=== PATIENT | female | born 1970 | race Hispanic/Latino ===

== ENCOUNTER 2018-10-16 12:20 | Emergency (ER) | payer BC, OTHER, SELFPAY ==
[2018-10-16 14:13] LABS: Absolute Lymphocytes (CBC) 2.5 K/uL (0.7-4.9); Absolute Monocytes 0.7 K/uL (0.1-1.3); Absolute Neutrophil 4.3 K/uL (1.8-8.0); Basophils % 0.7 % (0-1.3); Eosinophils % 2.5 % (0-4.4); Hematocrit 41.5 % (36.0-45.0); Lymphocytes % 32.1 % (15.3-44.8); MPV 7.9 fL (7.6-11.3); Monocytes % 9.5 % (3.3-12.3)
[2018-10-16 15:10] LABS: ALT/SGPT 26 U/L (12-78); AST/SGOT 17 U/L (15-37); Albumin 3.8 g/dL (3.4-5.0); Alkaline Phosphatase 128 U/L (45-117); BUN Blood Urea Nitrogen 10 mg/dL (7-18); Bicarbonate 29 mmol/L (21-32); Bilirubin Direct 0.1 mg/dL (0-0.2); Bilirubin Total 0.4 mg/dL (0.2-1.0); Glucose Level 86 mg/dL (74-106); Lipase 111 U/L (73-393); Potassium 3.5 mmol/L (3.5-5.1); Sodium Level 139 mmol/L (136-145)
--- NOTE | 2018-10-16 16:10 | RAD REPORT ---
EXAM DESCRIPTION: CT - Abdomen Pelvis W Contrast - 10/16/2018 3:53 pm CLINICAL HISTORY: Left back pain, left lower quadrant pain, vomiting and diarrhea, prior oophorectom y COMPARISON: CT imaging March 2008 TECHNIQUE: Biphasic, helical CT imaging of the abdomen and pelvis was performed following 100 ml non -ionic IV contrast. Oral contrast was given. All CT scans are performed using dose optimization technique as appropriate and may include automated exposure control or mA/KV adjustment according to patient size. FINDINGS: No suspicious findings in the lung bases. The liver, spleen, and pancreas show no suspicious findings. Gallbladder is absent. No biliary tree d ilatation. Symmetric renal function is seen with no hydronephrosis or suspicious renal mass. No pyelonephritis o r acute parenchymal process. No adrenal gland abnormality seen. Vance of the urinary bladder appear r elatively prominent for the amount of volume within the lumen. A mass or bladder calculus is not seen . Correlation can be made with any clinical or laboratory findings for cystitis. Uterus is absent. Left ovarian or left ovarian remnant tissue present not regarded as suspicious. No cystic or solid adnexal mass. Phleboliths are present. Postsurgical changes are noted to the low ante rior abdominal wall. No acute stomach or small bowel finding. There is moderate stool volume in the colon. Oral contrast h as reached the hepatic flexure. No colitis, diverticulitis or acute colon process identifiable. No free air, free fluid or inflammatory stranding. No hernia, mass or bulky lymphadenopathy. No suspicious bony findings. IMPRESSION: Urinary bladder vance are relatively prominent but without focal mass or bladder calculu s. Correlation is needed with any clinical or laboratory findings of cystitis. No pyelonephritis or acute finding. No acute GI process identifiable.
--- NOTE | 2018-10-16 17:35 | ER ---
Nurse's Notes [facility] Name: Gely Arango Age: 48 yrs Sex: Female : 1970 Arrival Date: 10/16/2018 Time: 12:23 Bed 30 Private MD: Rayray Tian Diagnosis: Cystitis, unspecified without hematuria Presentation: 10/16 12:48 Presenting complaint: Patient states: LLQ pain and left low back pain that began 2-3 aa5 days ago. Pt denies vomiting, reports vomiting and diarrhea today. Transition of care: patient was not received from another setting of care. Onset of symptoms was September 2018. Risk Assessment: Do you want to hurt yourself or someone else? Patient reports no desire to harm self or others. Initial Sepsis Screen: Does the patient meet any 2 criteria? No. Patient's initial sepsis screen is negative. Does the patient have a suspected source of infection? No. Patient's initial sepsis screen is negative. Care prior to arrival: None. 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 - Social history:: Smoking status: Patient/guardian denies using tobacco, Patient/guardian denies using alcohol, street drugs, The patient lives with family. - Ebola Screening: : No symptoms or risks identified at this time. Screenin:09 Abuse screen: Denies threats or abuse. Nutritional screening: No deficits noted. tl3 Tuberculosis screening: No symptoms or risk factors identified. Fall Risk None identified. Assessment: 13:09 General: Appears in no apparent distress. comfortable, slender, well groomed, well tl3 developed, well nourished, Behavior is calm, cooperative, appropriate for age. Pain: Complains of pain in left lower quadrant. Neuro: Level of Consciousness is awake, alert, obeys commands. Cardiovascular: Patient's skin is warm and dry. Respiratory: Airway is patent Respiratory effort is even, unlabored, Respiratory pattern is regular, symmetrical. GI: Bowel sounds present X 4 quads. Abd is soft. : Urine is clear. EENT: No signs and/or symptoms were reported regarding the EENT system. Derm: No signs and/or symptoms reported regarding the dermatologic system. Musculoskeletal: No signs and/or symptoms reported regarding the musculoskeletal system. 16:31 Reassessment: Patient appears in no apparent distress at this time. No changes from tl3 previously documented assessment. Patient is alert, oriented x 3, equal unlabored respirations, skin warm/dry/pink. pt back from CT, awaiting results. 17:50 Reassessment: Patient appears in no apparent distress at this time. No changes from tl3 previously documented assessment. Patient is alert, oriented x 3, equal unlabored respirations, skin warm/dry/pink. Vital Signs: 12:50 BP 108 / 79; Pulse 80; Resp 18 S; Temp 98.0(TE); Pulse Ox 100% on R/A; Weight 79.38 kg aa5 (R); Height 5 ft. 7 in. (170.18 cm) (R); Pain 6/10; 13:56 BP 104 / 74; Pulse 79; Resp 18; Pulse Ox 99% ; tl3 16:31 BP 108 / 68; Pulse 70; Resp 18; Pulse Ox 99% ; tl3 17:50 BP 110 / 76; Pulse 78; Resp 16; Pulse Ox 100% on R/A; tl3 12:50 Body Mass Index 27.41 (79.38 kg, 170.18 cm) aa5 ED Course: 12:23 Patient arrived in ED. mr 12:23 Rayray Tian MD is Private Physician. mr 12:48 Arm band placed on. aa5 12:49 Triage completed. aa5 12:55 Dulce Finnegan RN is Primary Nurse. tl3 12:57 Yen Delgado MD is Attending Physician. ma2 13:09 Patient has correct armband on for positive identification. tl3 13:09 No provider procedures requiring assistance completed. tl3 13:55 Initial lab(s) drawn, by de, sent to lab. Inserted saline lock: 20 gauge in right tl3 antecubital area, using aseptic technique. Blood collected. 14:45 Lab(s) recollected, by me, sent to lab. jp3 15:[address] 2 15:51 [address] completed. Patient tolerated procedure well. Patient moved back from CT. 2 15:54 CT Abd/Pelvis - W/Contrast In Process Unspecified. EDMS 17:50 IV discontinued, intact, bleeding controlled, No redness/swelling at site. Pressure tl3 dressing applied. Administered Medications: No medications were administered Outcome: 17:35 Discharge ordered by . ma2 17:50 Discharged to home ambulatory. tl3 17:50 Condition: stable 17:50 Discharge instructions given to patient, Instructed on discharge instructions, follow up and referral plans. medication usage, Demonstrated understanding of instructions, follow-up care, medications, Prescriptions given X 4. 17:52 Patient left the ED. tl3 Signatures: Dispatcher [employer] EDID Leticia MonroeStacy, RN RN aa5 Ginna Maddox 2 Yen Delgado MD MD ma2 Dulce Finnegan RN RN tl3 Shaheen Butler jp3 Corrections: (The following items were deleted from the chart) 12:50 12:50 Immunization history: Flu vaccine is not up to date. aa5 aa5
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
[2018-10-16 18:06] VITALS: TEMP 98
[2018-10-16 18:10] VITALS: BP 110/76; O2SAT 100
[2018-10-16 20:28] LABS: Urine Blood NEGATIVE (NEG); Urine Glucose NEGATIVE (NEG); Urine Protein 1+ (NEG); Urine pH 7.5 (5.0-7.0)
== END 2018-10-16 17:52 | disposition home or self-care (01) ==
LOC: ER 12:20
DX: N30.90 Cystitis, unspecified without hematuria (principal); E03.9 Hypothyroidism, unspecified; Z88.5 Allergy status to narcotic agent
CPT/HCPCS: 36415; 74177; 80048; 80076; 81003; 81025; 83690; 85025; 99284; Q9967

== ENCOUNTER 2019-03-17 19:20 | Emergency (ER) | payer BC ==
--- NOTE | 2019-03-17 20:25 | RAD REPORT ---
EXAM DESCRIPTION: CT - Head Brain Wo Cont - 03/17/2019 8:05 pm CLINICAL HISTORY: Numbness COMPARISON: 2011 TECHNIQUE: Computed axial tomography of the head was obtained. IV contrast was not requested. All CT scans are performed using dose optimization technique as appropriate and may include automated exposure control or mA/KV adjustment according to patient size. FINDINGS: An intracranial bleed is not seen . The ventricles are normal in caliber. No extra-axial fluid collection is noted. Fluid within the sinuses/ mastoids is not seen. IMPRESSION: No acute intracranial abnormality is seen. If patient's symptoms persist MRI of the bra in would be recommended.
[2019-03-17 20:46] LABS: Absolute Lymphocytes (CBC) 2.7 K/uL (0.7-4.9); Basophils % 0.3 % (0-1.3); Hematocrit 38.6 % (36.0-45.0); Lymphocytes % 36.8 % (15.3-44.8); MPV 7.9 fL (7.6-11.3); RBC Red Blood Cell Count 3.94 M/uL (3.86-4.86)
[2019-03-17 21:02] LABS: Urine Bacteria 20-50 /HPF (<20); Urine Culture Reflex Order REFLEXED; Urine RBC <5 /HPF (NONE SEEN)
[2019-03-17 21:04] LABS: Urine Blood TRACE (NEG); Urine Glucose NEGATIVE (NEG); Urine Protein NEGATIVE (NEG)
[2019-03-17 21:11] LABS: BUN Blood Urea Nitrogen 7 mg/dL (7-18); Bicarbonate 29 mmol/L (21-32); Glucose Level 73 mg/dL (74-106); Magnesium 2.3 mg/dL (1.8-2.4); Potassium 3.5 mmol/L (3.5-5.1); Sodium Level 142 mmol/L (136-145)
--- NOTE | 2019-03-17 21:37 | EDPHYS ---
Physician Documentation [facility] Name: Gely Arango Age: 48 yrs Sex: Female : 1970 Arrival Date: 03/17/2019 Time: 19:23 Bed 13 Private MD: Rayray Tian ED Physician Eulogio Cronin HPI: 03/17 19:39 This 48 yrs old Female presents to ER via Ambulatory with complaints of rn Numbness Of Face, Numbness Of Hand, Headache, Numbness Of Feet. 19:39 The patient complains of pain to the generalized. The patient describes the headache as rn intermittent. Onset: The symptoms/episode began/occurred 2 week(s) ago. Associated signs and symptoms: Pertinent positives: paresthesias, Pertinent negatives: altered mental status, fever, neck stiffness, vision changes, vision loss, vomiting, weakness, vertigo. Severity of symptoms: At its worst the pain was mild, in the emergency department the pain is unchanged. The patient has experienced similar episodes in the past. Reports hx of hemiplegic migraines but has been a while, now 2 weeks of intermittent headache, assoc with numbness/tingling of both hands and feet, no focal weakness, no coordination issues, no chest pain/sob/abd pain. . 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 - Social history:: Smoking status: Patient/guardian denies using tobacco. - Ebola Screening: : Patient denies travel to an Ebola-affected area in the 21 days before illness onset. - Family history:: not pertinent. - Hospitalizations: : No recent hospitalization is reported. ROS: 19:39 Constitutional: Negative for fever, chills, and weight loss, Eyes: Negative for injury, rn pain, redness, and discharge, Neck: Negative for injury, pain, and swelling, Cardiovascular: Negative for chest pain, palpitations, and edema, Respiratory: Negative for shortness of breath, cough, wheezing, and pleuritic chest pain, Abdomen/GI: Negative for abdominal pain, nausea, vomiting, diarrhea, and constipation, : + foul smelling urine MS/Extremity: Negative for injury and deformity, Skin: Negative for injury, rash, and discoloration, Neuro: Negative for weakness, and seizure. Exam: 19:39 Constitutional: This is a well developed, well nourished patient who is awake, alert, rn and in no acute distress. Head/Face: Normocephalic, atraumatic. Eyes: Pupils equal round and reactive to light, extra-ocular motions intact. Lids and lashes normal. Conjunctiva and sclera are non-icteric and not injected. Cornea within normal limits. Periorbital areas with no swelling, redness, or edema. Respiratory: No increased work of breathing, no retractions or nasal flaring. Abdomen/GI: soft, non-tender Skin: Warm, dry MS/ Extremity: Pulses equal, no cyanosis. Neurovascular intact. Full, normal range of motion. Equal circumference. Neuro: Awake and alert, GCS 15, oriented to person, place, time, and situation. Cranial nerves II-XII grossly intact. Motor strength 5/5 in all extremities. Sensory grossly intact. Cerebellar exam normal. Vital Signs: 19:27 BP 129 / 75; Pulse 70; Resp 18; Temp 98.1; Pulse Ox 100% on R/A; Weight 73.94 kg (R); aj1 Height 5 ft. 6 in. (167.64 cm) (R); 21:00 BP 109 / 78; Pulse 71; Resp 16; Pulse Ox 100% on R/A; jb4 21:49 BP 103 / 66; Pulse 72; Resp 16; Pulse Ox 98% on R/A; jb4 19:27 Body Mass Index 26.31 (73.94 kg, 167.64 cm) aj1 Kinjal Coma Score: 21:36 Eye Response: spontaneous(4). Verbal Response: oriented(5). Motor Response: obeys rn commands(6). Total: 15. MDM: 19:30 Patient medically screened. rn 21:36 Differential diagnosis: migraine, tension headache, hypothyroidism, mono, UTI, rn electrolyte disorder. Data reviewed: vital signs, nurses notes, lab test result(s), radiologic studies, CT scan, and as a result, I will discharge patient. Counseling: I had a detailed discussion with the patient and/or guardian regarding: the historical points, exam findings, and any diagnostic results supporting the discharge/admit diagnosis, lab results, radiology results, the need for outpatient follow up, to return to the emergency department if symptoms worsen or persist or if there are any questions or concerns that arise at home. Response to treatment: the patient's symptoms have mildly improved after treatment, and as a result, I will discharge patient. Special discussion: I discussed with the patient/guardian in detail that at this point there is no indication for admission to the hospital. It is understood, however, that if the symptoms persist or worsen the patient needs to return immediately for re-evaluation. Based on the history and exam findings, there is no indication for further emergent testing or inpatient evaluation. I discussed with the patient/guardian the need to see the neurologist for further evaluation of the symptoms. I discussed with the patient/guardian the need to see the primary care provider for further evaluation of the symptoms. 03/17 19:39 Order name: CBC with Diff; Complete Time: : 03/17 19:39 Order name: Basic Metabolic Panel; Complete Time: : 03/17 19:39 Order name: Urine Microscopic Only; Complete Time: : 03/17 19:39 Order name: TSH; Complete Time: : 03/17 19:39 Order name: T4 Free; Complete Time: :03/17 19:39 Order name: Magnesium; Complete Time: :03/17 19:39 Order name: CT Head Brain wo Cont; Complete Time: 20:03/17 19:39 Order name: IV Start; Complete Time: 20:39 03/17 19:43 Order name: Lactate; Complete Time: :03/17 19:43 Order name: [place] Screen Profile; Complete Time: : 03/17 20:38 Order name: Urine Dipstick--Ancillary (enter results); Complete Time: : [facility] 03/17 20:38 Order name: Urine --Ancillary (enter results); Complete Time: : [facility] 03/17 21:06 Order name: Urine Culture [facility] 03/17 19:39 Order name: Urine Test (obtain specimen); Complete Time: 20: 03/17 19:39 Order name: Urine Dipstick-Ancillary (obtain specimen); Complete Time: 20:31 rn Administered Medications: 21:45 Drug: Macrobid 100 mg Route: PO; jb4 21:48 Follow up: Response: Medication administered at discharge. jb4 Disposition: 03/17/19 21:37 Discharged to Home. Impression: Urinary tract infection, site not specified, Paresthesia of skin, Headache. - Condition is Stable. - Discharge Instructions: General Headache Without Cause, Paresthesia, Urinary Tract Infection, Adult. - Prescriptions for Macrobid 100 mg Oral Capsule - take 1 capsule by ORAL route every 12 hours for 7 days; 14 capsule. - Medication Reconciliation Form, Thank You Letter, Antibiotic Education, Prescription Opioid Use form. - Follow up: Rayray Tian MD; When: As needed; Reason: Recheck today's complaints, Re-evaluation by your physician. - Problem is an ongoing problem. - Symptoms have improved. Signatures: Dispatcher [employer] EDSheela Ortiz RN RN aj1 Eulogio Cronin MD MD rn Bryson, James, RN RN jb4 Corrections: (The following items were deleted from the chart) 21:50 21:37 03/17/2019 21:37 Discharged to Home. Impression: Urinary tract infection, site jb4 not specified; Paresthesia of skin; Headache. Condition is Stable. Forms are Medication Reconciliation Form, Thank You Letter, Antibiotic Education, Prescription Opioid Use. Follow up: Rayray Tian; When: As needed; Reason: Recheck today's complaints, Re-evaluation by your physician. Problem is an ongoing problem. Symptoms have improved. rn
--- NOTE | 2019-03-17 21:37 | ER ---
Nurse's Notes [facility] Name: Gely Arango Age: 48 yrs Sex: Female : 1970 Arrival Date: 03/17/2019 Time: 19:23 Bed 13 Private MD: Rayray Tian Diagnosis: Urinary tract infection, site not specified;Paresthesia of skin;Headache Presentation: 03/17 19:24 Presenting complaint: Patient states: Numbness in both hands and feet for the past 5 aj1 days. Today the pain has been worse. This morning she had a headache and nausea when she woke up, she took Tylenol and that helped but then around an hour ago her headache started again, and she started to have some numbness on the left side of her mouth. 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 Transition of care: patient was not received from another setting of care. Onset of symptoms was March 12, 2019. Risk Assessment: Do you want to hurt yourself or someone else? Patient reports no desire to harm self or others. Initial Sepsis Screen: Does the patient meet any 2 criteria? No. Patient's initial sepsis screen is negative. Does the patient have a suspected source of infection? No. Patient's initial sepsis screen is negative. Care prior to arrival: None. 19:24 Method Of Arrival: Ambulatory aj1 19:24 Acuity: VANNESSA 3 aj1 Triage Assessment: 19:27 Headache History: The patient has had previous headaches and this one is similar to aj1 previous episodes. General: Appears in no apparent distress. comfortable, Behavior is calm, cooperative, appropriate for age. Pain: Complains of pain in left christian Pain currently is 5 out of 10 on a pain scale. Pain began 1 hour ago. Also complains of no other associated symptoms. 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 Full function Gait is steady, Speech is normal, Facial symmetry appears normal. Cardiovascular: Patient's skin is warm and dry. Respiratory: Airway is patent Respiratory effort is even, unlabored, Respiratory pattern is regular, symmetrical. 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 - Social history:: Smoking status: Patient/guardian denies using tobacco. - Ebola Screening: : Patient denies travel to an Ebola-affected area in the 21 days before illness onset. - Family history:: not pertinent. - Hospitalizations: : No recent hospitalization is reported. Screenin:55 Abuse screen: Denies threats or abuse. Nutritional screening: No deficits noted. jb4 Tuberculosis screening: No symptoms or risk factors identified. Fall Risk None identified. Assessment: 19:50 General: Appears in no apparent distress. comfortable, Behavior is. Pain: Complains of jb4 pain in headache, CHANTEL hands Pain does not radiate. Pain currently is 3 out of 10 on a pain scale. Quality of pain is described as dull. Neuro: Level of Consciousness is awake, alert, obeys commands, Oriented to person, place, time, situation, Moves all extremities. Full function Gait is steady, Speech is normal, Facial symmetry appears normal. Cardiovascular: Patient's skin is warm and dry. Respiratory: Airway is patent Respiratory effort is even, unlabored, Respiratory pattern is regular, symmetrical. GI: No signs and/or symptoms were reported involving the gastrointestinal system. : Reports pain with urination. EENT: No signs and/or symptoms were reported regarding the EENT system. Derm: Skin is intact, Skin is pink, warm \T\ dry. Musculoskeletal: Circulation, motion, and sensation intact. Range of motion: intact in all extremities, Reports numbness in right arm, left arm, right leg and left leg, left side of face. 21:00 Reassessment: Patient appears in no apparent distress at this time. Patient and/or jb4 family updated on plan of care and expected duration. Pain level reassessed. Patient is alert, oriented x 3, equal unlabored respirations, skin warm/dry/pink. 21:48 Reassessment: Patient appears in no apparent distress at this time. Patient and/or jb4 family updated on plan of care and expected duration. Pain level reassessed. Patient is alert, oriented x 3, equal unlabored respirations, skin warm/dry/pink. PT ambulated out of Ed with steady gait, verbalized understanding of d/c and follow up instructions. denies questions or concerns. Vital Signs: 19:27 BP 129 / 75; Pulse 70; Resp 18; Temp 98.1; Pulse Ox 100% on R/A; Weight 73.94 kg (R); aj1 Height 5 ft. 6 in. (167.64 cm) (R); 21:00 BP 109 / 78; Pulse 71; Resp 16; Pulse Ox 100% on R/A; jb4 21:49 BP 103 / 66; Pulse 72; Resp 16; Pulse Ox 98% on R/A; jb4 19:27 Body Mass Index 26.31 (73.94 kg, 167.64 cm) aj1 [place] Score: 21:36 Eye Response: spontaneous(4). Verbal Response: oriented(5). Motor Response: obeys rn commands(6). Total: 15. ED Course: 19:23 Patient arrived in ED. rg4 19:24 Rayray Tian MD is Private Physician. rg4 19:26 Triage completed. aj1 19:27 Arm band placed on. aj1 19:30 Eulogio Cronin MD is Attending Physician. rn 19:55 Patient has correct armband on for positive identification. Bed in low position. Call jb4 light in reach. Side rails up X 1. Pulse ox on. NIBP on. 20:06 CT Head Brain wo Cont In Process Unspecified. EDMS 20:20 Lucas Mcmahon, RN is Primary Nurse. jb4 20:39 Initial lab(s) drawn, by ca, sent to lab. Urine collected: clean catch specimen, ms cloudy. Inserted saline lock: 20 gauge in right antecubital area, using aseptic technique. Blood collected. 21:37 Rayray Tian MD is Referral Physician. rn 21:49 No provider procedures requiring assistance completed. IV discontinued, intact, jb4 bleeding controlled, No redness/swelling at site. Pressure dressing applied. Administered Medications: 21:45 Drug: Macrobid 100 mg Route: PO; jb4 21:48 Follow up: Response: Medication administered at discharge. jb4 Outcome: 21:37 Discharge ordered by MD. rn 21:49 Discharged to home ambulatory. jb4 21:49 Condition: stable 21:49 Discharge instructions given to patient, Instructed on discharge instructions, follow up and referral plans. medication usage, Demonstrated understanding of instructions, follow-up care, medications, Prescriptions given X 1. 21:50 Patient left the ED. jb4 Addendum: 03/20/2019 11:18 Addendum: Culture Results: Positive urine culture. Bacteria is resistant to, has i w intermediate sensitivity, or is not tested against prescribed antibiotics. Report given to JOHN for further evaluation and then to ep technologist for follow up with patient. Signatures: Dispatcher [employer] EDMS Sheela Ibarra RN RN aj1 Ruby Michael RN RN iw Solis, Maria ms Eulogio Cronin MD MD rn Garcia, Rubi rg4 Lucas Mcmahon RN RN jb4
[2019-03-17] MEDS ORDERED: NITROFURAN MACRO 100 MG CAP PO ONE (22:00)
[2019-03-17 23:08] VITALS: TEMP 98.1
[2019-03-17 23:10] VITALS: BP 103/66; O2SAT 98
== END 2019-03-17 21:50 | disposition home or self-care (01) ==
LOC: ER 19:20
DX: N39.0 Urinary tract infection, site not specified (principal); R20.2 Paresthesia of skin; E03.9 Hypothyroidism, unspecified; Z88.5 Allergy status to narcotic agent
CPT/HCPCS: 36415; 70450; 80048; 81003; 81015; 81025; 83605; 83735; 84439; 84443; 85025; 86308; 87077; 87086; 87088; 87186; 99284